=== PATIENT | male | born 1945 | race Caucasian/White ===

== ENCOUNTER → 2017-07-23 | Outpatient (CLI) | payer MEDICARE ==
[~2017-07-23] MED LIST: ATORVASTATIN 40 MG T; B-COMPLEX TABL0.4 MG; BENADRYL50 MG; C 500 MG TIMED500 MG; CARVEDILOL25 MG; CENTRUM SILVER1 EAC3; CVS MENOPAUSE; E-400 C-500 &1 EACH; EFFIENT10 MG; GARLIC OIL1 EACH; OMEGA 3 1,0001 EACH; POTASSIUM GLUCO99 M1 PO; TRIBENZOR 40-11 EAC1 PO; [UNRECOGNIZED DRUG - OTHER]; [UNRECOGNIZED DRUG - OTHER] PO
== END | disposition home or self-care (01) ==
LOC: CDC 11:11
DX: I44.0 Atrioventricular block, first degree (principal); I45.4 Nonspecific intraventricular block; I25.2 Old myocardial infarction
CPT/HCPCS: 93000

== ENCOUNTER → 2017-08-18 | Outpatient (CLI) | payer MEDICARE | END | disposition home or self-care (01) | LOC: CDC 11:05 | DX: Z01.810 Encounter for preprocedural cardiovascular examination (principal); J98.4 Other disorders of lung; I25.2 Old myocardial infarction; I45.4 Nonspecific intraventricular block; R94.31 Abnormal electrocardiogram [ECG] [EKG] | CPT/HCPCS: 93000 ==

== ENCOUNTER 2017-09-07 21:32 | Inpatient (IN) | payer OTHER ==
[~2017-09-07] VITALS: Ht 172.7 cm; Wt 115.0 kg
[~2017-09-07 21:32] MED LIST changes: +AMARYL2 MG PO; +CILOSTAZOL100 MG PO; +COREG25 M1 PO; +HYDROCHLOROTHIA25 MG PO; +LASIX40 MG PO; +LIPITOR40 MG PO; +LO-DOSE ASPIRIN81 M2 PO; +NORVASC10 MG PO; +PROBIOTIC1 EAC1 PO; +VITAMIN D32000 UNI1 PO; +VOLTAREN75 MG PO; +ZESTRIL10 MG PO
[2017-09-08 12:15] LABS: HEMATOCRIT 41.4 % (38.0-50.0); MCH 31.1 PG (29.0-34.0); MCHC 33.1 G/DL (30.0-36.0); MCV 93.9 FL (86-99); MEAN PLAT.VOLUME 10.2 uM^3 (9.0-12.4); PLATELET COUNT 220 K/uL (156-360); RBC DIS.WIDTH-CV 13.6 % (11.8-14.6); RBC DIS.WIDTH-SD 46.6 % (39-53); RED BLOOD COUNT 4.41 M/uL (4.00-5.50); WHITE BLOOD COUNT 10.5 K/uL (4.1-10.2)
[2017-09-08 12:18] VITALS: BP 177/81
[2017-09-08 12:37] LABS: ANION GAP 8 MEQ/L (2-14); CHLORIDE 106 MEQ/L (99-109); GFR ESTIMATE (CALCULATED) > 59 mL/min/; GLUCOSE 179 mg/dL (70-99); POTASSIUM 4.4 MEQ/L (3.7-5.4); SAMPLE HEMOLYSIS CHECK 0; SAMPLE ICTERIC CHECK 0; SAMPLE LIPEMIA CHECK 0; SODIUM 143 MEQ/L (136-147); UREA NITROGEN (BUN) 18 mg/dL (9-23)
[2017-09-08 12:42] VITALS: BP 177/81
[2017-09-08 18:33] LABS: POINT-OF-CARE METER ID UU13113675
[2017-09-08 19:02] LABS: HEMATOCRIT 37.5 % (38.0-50.0); MCH 31.7 PG (29.0-34.0); MCHC 33.9 G/DL (30.0-36.0); MCV 93.5 FL (86-99); PLATELET COUNT 179 K/uL (156-360); RBC DIS.WIDTH-CV 14.1 % (11.8-14.6); RBC DIS.WIDTH-SD 48.1 % (39-53); RED BLOOD COUNT 4.01 M/uL (4.00-5.50); WHITE BLOOD COUNT 13.4 K/uL (4.1-10.2)
[2017-09-08 19:44] LABS: TROP-I INTERPRETATION NEGATIVE; TROPONIN-I < 0.01 ng/mL (0.0-0.30)
[2017-09-08 20:06] LABS: ANION GAP 6 MEQ/L (2-14); CHLORIDE 108 MEQ/L (99-109); GFR ESTIMATE (CALCULATED) > 59 mL/min/; GLUCOSE 195 mg/dL (70-99); POTASSIUM 4.3 MEQ/L (3.7-5.4); SAMPLE HEMOLYSIS CHECK 0; SAMPLE ICTERIC CHECK 0; SAMPLE LIPEMIA CHECK 0; SODIUM 140 MEQ/L (136-147); UREA NITROGEN (BUN) 14 mg/dL (9-23)
[2017-09-08 21:17] VITALS: BP 94/53
[2017-09-08 21:38] LABS: POINT-OF-CARE METER ID UU14174216
[2017-09-09] VITALS (8 sets, daily range): BP systolic 80–137; BP diastolic 43–68
[2017-09-09 05:00] LABS: HEMATOCRIT 32.4 % (38.0-50.0); MCH 31.9 PG (29.0-34.0); MCHC 34.9 G/DL (30.0-36.0); MCV 91.5 FL (86-99); MEAN PLAT.VOLUME 10.5 uM^3 (9.0-12.4); PLATELET COUNT 176 K/uL (156-360); RBC DIS.WIDTH-CV 14.1 % (11.8-14.6); RED BLOOD COUNT 3.54 M/uL (4.00-5.50); WHITE BLOOD COUNT 11.6 K/uL (4.1-10.2)
[2017-09-09 05:11] LABS: CHLORIDE 105 mEq/L (99-109); POTASSIUM 4.1 mEq/L (3.7-5.4); SODIUM 136 mEq/L (136-147)
[2017-09-09 05:13] LABS: GLUCOSE 125 mg/dL (70-99)
[2017-09-09 05:15] LABS: ANION GAP 7 MEQ/L (2-14)
[2017-09-09 05:17] LABS: GFR ESTIMATE (CALCULATED) > 59 mL/min/
[2017-09-09 05:18] LABS: UREA NITROGEN (BUN) 17 mg/dL (9-23)
[2017-09-09 05:22] LABS: TROP-I INTERPRETATION NEGATIVE; TROPONIN-I < 0.01 ng/mL (0.0-0.30)
[2017-09-09 08:06] LABS: POINT-OF-CARE METER ID UU13113698
[2017-09-09 11:46] LABS: POINT-OF-CARE METER ID UU13113781
[2017-09-09] MEDS ORDERED: ELIQUIS2.5 MG PO (12:59)
[2017-09-09 16:57] LABS: POINT-OF-CARE METER ID UU13113698; POINT-OF-CARE USER ID ENVKC36
[2017-09-09 20:50] LABS: POINT-OF-CARE METER ID UU14174216
[2017-09-10 00:25] VITALS: BP 121/60
[2017-09-10 05:15] VITALS: BP 102/57
[2017-09-10 05:39] LABS: HEMATOCRIT 30.4 % (38.0-50.0); MCH 31.6 PG (29.0-34.0); MCHC 34.5 G/DL (30.0-36.0); MCV 91.6 FL (86-99); MEAN PLAT.VOLUME 10.8 uM^3 (9.0-12.4); PLATELET COUNT 144 K/uL (156-360); RBC DIS.WIDTH-CV 13.7 % (11.8-14.6); RBC DIS.WIDTH-SD 46.1 % (39-53); RED BLOOD COUNT 3.32 M/uL (4.00-5.50); WHITE BLOOD COUNT 12.1 K/uL (4.1-10.2)
[2017-09-10 08:03] VITALS: BP 104/57
[2017-09-10 08:04] LABS: POINT-OF-CARE METER ID UU13113698
[2017-09-10 11:17] LABS: POINT-OF-CARE METER ID UU14174216
[2017-09-10 11:26] VITALS: BP 117/55
[2017-09-10] MEDS ORDERED: HYDROCODON-ACE1 EAC7 PO (12:53)
== END 2017-09-10 16:07 | DRG 253 ==
LOC: ENRESERV 21:32 → 2SOUTH 09-08 09:49 → ENRESERV 09-08 18:53 → 4EAST 09-08 20:40
PROVIDERS: Physician Assistant; Surgery
DX: I70.245 Atherosclerosis of native arteries of left leg with ulceration of other part of foot (principal); L97.529 Non-pressure chronic ulcer of other part of left foot with unspecified severity; E11.51 Type 2 diabetes mellitus with diabetic peripheral angiopathy without gangrene; E11.621 Type 2 diabetes mellitus with foot ulcer; I74.5 Embolism and thrombosis of iliac artery; I95.9 Hypotension, unspecified; R60.0 Localized edema; I10 Essential (primary) hypertension; I25.10 Atherosclerotic heart disease of native coronary artery without angina pectoris; E78.00 Pure hypercholesterolemia, unspecified; F17.200 Nicotine dependence, unspecified, uncomplicated; I25.2 Old myocardial infarction; Z95.5 Presence of coronary angioplasty implant and graft; Z79.84 Long term (current) use of oral hypoglycemic drugs
CPT/HCPCS: 80048; 80048 91; 82948; 84484; 85027; 86850; 86900; 86901; 86920; 90686; 93971; J0131; J0690; J1644; J2250; J2405; J3010; J7120; P9016

== ENCOUNTER 2017-09-10 15:07 | Inpatient (IN) | payer OTHER ==
[~2017-09-10] VITALS: Ht 175.3 cm; Wt 116.3 kg
[~2017-09-10 15:07] MED LIST changes: +ELIQUIS2.5 MG PO; +HYDROCODON-ACE1 EAC7 PO
[2017-09-10 16:34] VITALS: BP 110/64
[2017-09-10 16:38] LABS: POINT-OF-CARE METER ID UU14174215
[2017-09-10 20:56] LABS: POINT-OF-CARE METER ID UU13113720
[2017-09-10 23:40] VITALS: BP 113/58
[2017-09-11 04:37] VITALS: BP 100/58
[2017-09-11 07:04] LABS: HEMATOCRIT 27.7 % (38.0-50.0); MCHC 35.4 G/DL (30.0-36.0); MCV 90.5 FL (86-99); MEAN PLAT.VOLUME 10.5 uM^3 (9.0-12.4); PLATELET COUNT 151 K/uL (156-360); RBC DIS.WIDTH-CV 13.6 % (11.8-14.6); RBC DIS.WIDTH-SD 44.6 % (39-53); RED BLOOD COUNT 3.06 M/uL (4.00-5.50); WHITE BLOOD COUNT 11.6 K/uL (4.1-10.2)
[2017-09-11 07:56] LABS: ALKALINE PHOSPHATASE 63 IU/L (3-129); ANION GAP 7 MEQ/L (2-14); CHLORIDE 101 MEQ/L (99-109); GFR ESTIMATE (CALCULATED) > 59 mL/min/; GLUCOSE 180 mg/dL (70-99); POTASSIUM 3.4 MEQ/L (3.7-5.4); SAMPLE HEMOLYSIS CHECK 0; SAMPLE ICTERIC CHECK 0; SAMPLE LIPEMIA CHECK 0; SODIUM 135 MEQ/L (136-147); TOTAL BILIRUBIN 0.6 MG/DL (0.0-1.0); UREA NITROGEN (BUN) 21 mg/dL (9-23)
[2017-09-11 07:57] LABS: POINT-OF-CARE METER ID UU14174215; POINT-OF-CARE USER ID AHSSSJB31
[2017-09-11 11:50] LABS: POINT-OF-CARE METER ID UU13113720; POINT-OF-CARE USER ID AHSSSJB31
[2017-09-11 15:43] VITALS: BP 92/54
[2017-09-11 16:30] LABS: POINT-OF-CARE METER ID UU14174215; POINT-OF-CARE USER ID 610211320
[2017-09-11 21:21] LABS: POINT-OF-CARE METER ID UU14174215
[2017-09-12 06:04] VITALS: BP 93/51
[2017-09-12 07:30] LABS: POINT-OF-CARE METER ID UU13113720; POINT-OF-CARE USER ID AHSSSJB31
[2017-09-12] MEDS ORDERED: ELIQUIS2.5 MG PO (11:47)
[2017-09-12 11:53] LABS: POINT-OF-CARE METER ID UU13113720; POINT-OF-CARE USER ID AHSSSJB31
[2017-09-12 15:55] VITALS: BP 115/56
[2017-09-12 15:59] LABS: POINT-OF-CARE METER ID UU13113720; POINT-OF-CARE USER ID 610211320
[2017-09-13 05:30] VITALS: BP 128/62
[2017-09-13 07:32] LABS: POINT-OF-CARE METER ID UU13113720; POINT-OF-CARE USER ID AHSSSJB31
[2017-09-13 12:02] LABS: POINT-OF-CARE METER ID UU13113720; POINT-OF-CARE USER ID AHSSSJB31
[2017-09-13 15:25] VITALS: BP 130/60
== END 2017-09-13 16:15 | disposition home or self-care (01) | DRG 945 ==
LOC: 3WEST 15:07 → ENPENDDIS 09-13 → 3WEST 09-13 16:15
PROVIDERS: Physical Medicine & Rehabilitation Pain Medicine
PROC: F07M0ZZ Range of Motion and Joint Mobility Treatment of Musculoskeletal System - Whole Body (ICD-10-PCS; principal; 2017-09-10)
DX: R53.1 Weakness (principal); D62 Acute posthemorrhagic anemia; R20.0 Anesthesia of skin; D69.6 Thrombocytopenia, unspecified; E78.00 Pure hypercholesterolemia, unspecified; F17.200 Nicotine dependence, unspecified, uncomplicated; E83.51 Hypocalcemia; I10 Essential (primary) hypertension; I25.10 Atherosclerotic heart disease of native coronary artery without angina pectoris; I25.2 Old myocardial infarction; Z95.5 Presence of coronary angioplasty implant and graft; E11.621 Type 2 diabetes mellitus with foot ulcer; L97.529 Non-pressure chronic ulcer of other part of left foot with unspecified severity; R26.2 Difficulty in walking, not elsewhere classified; E11.51 Type 2 diabetes mellitus with diabetic peripheral angiopathy without gangrene
CPT/HCPCS: 80053; 82948; 85027; 97110 GO; 97530 GP; J1815